=== PATIENT | male | born 1995 | race Hispanic/Latino ===

== ENCOUNTER 2019-12-20 13:21 | Inpatient (IN) ==
[2019-12-20] MEDS ORDERED: ROBAXIN PO PRN (16:20)
[2019-12-20] MEDS ORDERED: DULCOLAX PR PRN (16:20)
[2019-12-20] MEDS ORDERED: TUBERSOL ID ONE (16:20)
[2019-12-20] MEDS ORDERED: MAALOX PLUS LIQUID PO PRN (16:20)
[2019-12-20] MEDS ORDERED: D5W 1,000 ML IV PRN (16:20)
[2019-12-20] MEDS ORDERED: ZOFRAN ODT PO PRN (16:20)
[2019-12-20] MEDS ORDERED: SENOKOT PO PRN (16:20)
[2019-12-20] MEDS ORDERED: ZOFRAN IV PRN (16:20)
[2019-12-20] MEDS ORDERED: BENTYL PO PRN (16:20)
[2019-12-20] MEDS ORDERED: DESYREL PO PRN (16:20)
[2019-12-20] MEDS ORDERED: LIBRIUM PO PRN (16:20)
[2019-12-20] MEDS ORDERED: IMODIUM PO PRN (16:20)
[2019-12-20] MEDS ORDERED: ATARAX PO PRN ×2 (16:20→21:01)
[2019-12-20] MEDS ORDERED: PHENOBARBITAL IV PRN (16:20)
[2019-12-20] MEDS ORDERED: NICODERM PATCH TD PRN (16:20)
[2019-12-20 17:26] LABS: HEMATOCRIT 47.1 % (42.0-52.0); MCHC 36.1 g/dL (33-37); MCV 85.9 FL (81-99); MPV 9.5 FL (7.4-10.4); RBC 5.48 XMIL (4.7-6.1); RDW 12.3 % (11.5-14.5); WBC 4.75 X1000 (4.8-10.8)
[2019-12-20] MEDS: LIBRIUM PO SCH ×2 (17:36→23:12)
[2019-12-20 17:39] LABS: AMYLASE 63 U/L (20-200); LIPASE 15 U/L (13-60)
[2019-12-20 17:42] LABS: AGAP 11; ALBUMIN 4.5 g/dL (3.5-5.0); ALKALINE PHOSPHATASE 55 U/L (32-122); BUN 13 mg/dL (8-22); CALCIUM 9.6 mg/dL (8.8-10.2); CHLORIDE 98 mmol/L (98-107); COSMO 276; CREATININE 0.9 mg/dL (0.7-1.2); ESTIMATED GFR > 60; GLUCOSE 100 mg/dL (70-104); GOT 29 U/L (10-34); GPT 33 U/L (10-44); SODIUM 138 mmol/L (136-145); TCO2 29 mmol/L (25-35); TOTAL PROTEIN 7.4 g/dL (6.3-8.3)
[2019-12-20 17:43] LABS: INR 0.94
[2019-12-20 17:47] LABS: URINE SOURCE CLEAN CATCH
[2019-12-20 17:49] LABS: BILIRUBIN URINE NEGATIVE (NEGATIVE); BLOOD URINE NEGATIVE (NEGATIVE); COLOR YELLOW; GLUCOSE URINE NEGATIVE (NEGATIVE); KETONE URINE NEGATIVE (NEGATIVE); LEUKOCYTES URINE NEGATIVE (NEGATIVE); NITRITE URINE NEGATIVE (NEGATIVE); PROTEIN URINE NEGATIVE (NEGATIVE); SP GRAVITY URINE 1.016; TURBIDITY URINE HAZY (CLEAR); UROBILINOGEN URINE NORMAL (NORMAL)
[2019-12-20 17:50] LABS: UR EPITHELIAL CELLS <10 /HPF (<10); URINE BACTERIA NEGATIVE /HPF; URINE RBC <10 /HPF (<10); URINE WBC <10 /HPF (<10)
[2019-12-20 17:58] LABS: UR AMPHETAMINES QUAL NONE DETECTED (NONE DETECT); UR BARBITUATES QUAL NONE DETECTED (NONE DETECT); UR BENZODIAZEPIN QUAL PRESUMPTIVE POSITIVE (NONE DETECT); UR CANNABINOIDS QUAL PRESUMPTIVE POSITIVE (NONE DETECT); UR COCAINE QUAL NONE DETECTED (NONE DETECT); UR METHADONE QUAL NONE DETECTED (NONE DETECT); UR METHAMPHETAMINE QUAL NONE DETECTED (NONE DETECT); UR OPIATES QUAL NONE DETECTED (NONE DETECT); UR OXYCODONE QUAL NONE DETECTED (NONE DETECT); UR PCP QUAL NONE DETECTED (NONE DETECT); UR PROPOXYPHENE QUAL NONE DETECTED (NONE DETECT); UR TCA QUAL NONE DETECTED (NONE DETECT)
[2019-12-20] MEDS: MOTRIN PO PRN (21:17)
[2019-12-20] MEDS: SINEMET 25/100 PO PRN (21:18)
[2019-12-21] MEDS: LIBRIUM PO SCH ×4 (03:54→18:05)
[2019-12-21] MEDS: MOTRIN PO PRN (03:54)
[2019-12-21] MEDS: PROTONIX [NONFORMULARY] PO SCH ×2 (03:54→06:03)
[2019-12-21] MEDS: TYLENOL PO PRN ×2 (08:13→15:38)
[2019-12-21] MEDS: VITAMIN B-1 PO SCH (08:14)
[2019-12-21] MEDS: THERA M PLUS PO SCH (08:14)
[2019-12-21] MEDS: FOLIC ACID PO SCH (08:14)
[2019-12-21] MEDS: ATARAX PO PRN ×2 (08:23→15:38)
[2019-12-21] MEDS ORDERED: SUBOXONE 2 MG/0.5 MG FILM SL ONE (09:22)
[2019-12-21] MEDS ORDERED: SUBOXONE 2 MG/0.5 MG FILM SL PRN (10:02)
--- NOTE | 2019-12-21 11:17 | PROGRESS NOTE ---
DATE: 12/21/2019 SUBJECTIVE: Patient notes he feels terrible. He is sweating. He is anxious. He is hurting. PHYSICAL EXAMINATION: Vital Signs: Reviewed. He is afebrile. Temperature 97.6 degrees, pulse 98, respiratory 20, blood pressure 118/61. General: Patient is awake, pleasant. He is in mild distress. HEENT: Normocephalic. Neck: Supple. Cardiovascular: Regular rate. Chest: Clear. Abdomen: Soft, nondistended. Extremities: Moves all extremities. Neurologic: No changes. ASSESSMENT: 1. Nausea and vomiting. 2. Abdominal pain. 3. Myalgias. 4. Paresthesias. 5. Paroxysmal sweating. 6. Opiate abuse, withdrawal and stabilization. PLAN: The patient currently is on Librium taper. Given his symptoms, we are going to do p.r.n. Suboxone today and will continue to wean as tolerated. cc: Jose Alejandro Campbell MD
[2019-12-21] MEDS: SINEMET 25/100 PO PRN (18:05)
[2019-12-22] MEDS: LIBRIUM PO SCH ×4 (00:35→17:27)
[2019-12-22] MEDS: PROTONIX [NONFORMULARY] PO SCH (06:25)
[2019-12-22] MEDS: FOLIC ACID PO SCH (09:08)
[2019-12-22] MEDS: VITAMIN B-1 PO SCH (09:08)
[2019-12-22] MEDS: THERA M PLUS PO SCH (09:08)
[2019-12-22] MEDS: SUBOXONE 2 MG/0.5 MG FILM SL PRN (09:24)
[2019-12-22] MEDS: TYLENOL PO PRN (14:02)
--- NOTE | 2019-12-22 19:16 | PROGRESS NOTE ---
DATE: 12/22/2019 SUBJECTIVE: Patient notes that he is feeling a little bit better, Suboxone did help. States he is still having some withdrawal symptoms. PHYSICAL EXAMINATION: Vital signs reviewed. He is awake, alert. He is in no current respiratory distress.HEENT: Normocephalic. Neck: Supple. CV: Regular rate. Chest: Clear. Abdomen: Soft. Extremities: Moves all extremities. Neuro: He has no focal changes. He is still fidgety, still anxious. ASSESSMENT: 1. Nausea, vomiting. 2. Abdominal pain. 3. Myalgias. 4. Paresthesias. 5. Paroxysmal sweating. 6. Opiate abuse withdrawal and stabilization. PLAN: We are going to continue patient in the hospital, continue to follow, further orders as needed. Continue symptomatic care. cc: Jose Alejandro Campbell MD
--- NOTE | 2019-12-22 23:14 | HISTORY AND PHYSICAL ---
CHIEF COMPLAINT: Nausea and vomiting. HISTORY OF PRESENT ILLNESS: The patient is a 24-year-old male who presented to [facility] secondary to nausea, vomiting and abdominal pain. He notes he has been using and abusing opiates. He has been trying to stop, but the withdrawal symptoms at times become too severe. SOCIAL HISTORY: The patient is single. Currently unemployed. Lives at home in [place], [place]. PAST MEDICAL HISTORY: He has no active medical problems other than substance abuse for which he takes Suboxone. PRESCRIPTIONS: Suboxone. ALLERGIES: No known drug allergies. REVIEW OF SYSTEMS: CINA score is 15 secondary to nausea, vomiting, abdominal pain, paroxysmal sweating, cold chills, frequent myalgias. He is restless, has insomnia, frequent mood swings, runny nose, watery eyes, frequent yawning, Denies any fevers or chills. Denies cough or congestion. Denies dysuria, frequency or urgency, polyuria. Denies skin rashes, weight loss or weight gain. SUBSTANCE ABUSE.: He was in treatment in 2008 for opiates 3 to 4 days, and in 2019 for 3 to 4 days, unfortunately did not stay sober after leaving. He notes that substance abuse has caused legal issues. He states he wants to get into the after getting off opiates. He started marijuana at 14, currently smokes daily. He started Xanax only experimentally. He has tried cocaine once. He started opiates at 22, currently takes 150 mg daily. He started smoking in his teens, currently smokes a pack a day. FAMILY HISTORY: Noncontributory. PHYSICAL EXAMINATION: VITAL SIGNS: Reviewed and stable. GENERAL: The patient is awake, alert and oriented. Currently in no respiratory distress. HEENT: Normocephalic. NECK: Supple. CARDIOVASCULAR: Regular rate. No murmurs. CHEST: Clear and nonlabored. ABDOMEN: Soft, nondistended, nontender. EXTREMITIES: Moves all extremities. NEUROLOGIC: The patient is awake and alert. He is fidgety, anxious. He does answer questions. ASSESSMENT: 1. Nausea and vomiting. 2. Abdominal pain. 3. Tremors. 4. Myalgias. 5. Paresthesias. 6. Paroxysmal sweating. 7. Opiate abuse, withdrawal and stabilization. PLAN: We are going to admit the patient to the hospital, place him on Suboxone taper as well as Librium. Continue to follow. Continue counseling. Further orders as needed. cc: Jose Alejandro Campbell MD
[2019-12-23] MEDS: SEROQUEL PO PRN ×2 (00:12→23:34)
[2019-12-23] MEDS: SUBOXONE 2 MG/0.5 MG FILM SL PRN (00:13)
[2019-12-23] MEDS: PROTONIX [NONFORMULARY] PO SCH (06:09)
[2019-12-23] MEDS: THERA M PLUS PO SCH (09:21)
[2019-12-23] MEDS: LIBRIUM PO SCH ×3 (09:21→21:01)
[2019-12-23] MEDS: FOLIC ACID PO SCH (09:21)
[2019-12-23] MEDS: VITAMIN B-1 PO SCH (09:21)
[2019-12-23] MEDS ORDERED: SUBUTEX SL PRN (10:21)
[2019-12-23] MEDS ORDERED: LIBRIUM PO PRN (10:22)
--- NOTE | 2019-12-23 10:50 | PROGRESS NOTE ---
DATE: 12/23/2019 SUBJECTIVE: The patient notes he is starting to feel a little bit better. States he feels like he has turned the corner. He did require some Suboxone yesterday. PHYSICAL EXAMINATION: Vital Signs: Reviewed. General: He is awake and alert. He is in no distress. He is lying in the bed. He is pleasant to talk with. Neurologic: No focal neurological changes. Extremities: Moves all extremities. ASSESSMENT: 1. Nausea and vomiting. 2. Abdominal pain. 3. Myalgias. 4. Paresthesias. 5. Paroxysmal sweating. 6. Opiate abuse withdrawal and stabilization. PLAN: We are going to continue the patient in the hospital, continue to wean Librium and Suboxone simultaneously. Further orders as needed. Continue counseling. cc: Jose Alejandro Campbell MD
[2019-12-24] MEDS: TYLENOL PO PRN (00:50)
[2019-12-24] MEDS: LIBRIUM PO SCH ×3 (02:17→21:59)
[2019-12-24] MEDS: PROTONIX [NONFORMULARY] PO SCH ×2 (06:21→06:22)
[2019-12-24] MEDS: VITAMIN B-1 PO SCH (10:20)
[2019-12-24] MEDS: FOLIC ACID PO SCH (10:20)
[2019-12-24] MEDS: THERA M PLUS PO SCH (10:20)
[2019-12-24] MEDS ORDERED: SUBUTEX SL PRN (13:01)
[2019-12-24] MEDS: SEROQUEL PO PRN (21:59)
[2019-12-25] MEDS: PROTONIX [NONFORMULARY] PO SCH ×2 (06:54→10:08)
[2019-12-25 09:28] VITALS: BP 155/54
[2019-12-25] MEDS: LIBRIUM PO SCH (10:07)
[2019-12-25] MEDS: VITAMIN B-1 PO SCH (10:07)
[2019-12-25] MEDS: THERA M PLUS PO SCH (10:08)
[2019-12-25] MEDS: FOLIC ACID PO SCH (10:08)
--- NOTE | 2019-12-25 18:36 | PROGRESS NOTE ---
DATE: 12/24/2019 SUBJECTIVE: Patient notes overall, he is feeling tremendously better today. Denies any fevers or chills. PHYSICAL EXAMINATION: Vital Signs: Reviewed. He is awake and alert. He is in no respiratory distress. He is afebrile. Blood pressure is 119/57, pulse 66. General: Patient is awake pleasant no distress. HEENT: Normocephalic. Neck: Supple. Cardiovascular: Regular rate. Chest: Clear. Abdomen: Soft. Extremities: Moves all extremities. ASSESSMENT: 1. Nausea and vomiting. 2. Abdominal pain. 3. Myalgias. 4. Paresthesias. 5. Paroxysmal sweating. 6. Opiate abuse withdrawal and stabilization. PLAN: Overall, the patient has had a tremendous improvement. We will continue to wean Librium as well as Suboxone to prevent withdrawal. Hopefully can discharge to rehab tomorrow if a bed is available. cc: Jose Alejandro Campbell MD
--- NOTE | 2019-12-25 19:54 | DISCHARGE SUMMARY ---
ADMISSION DATE: 12/20/2019 DISCHARGE DATE: 12/25/2019 DISCHARGE DIAGNOSES: 1. Nausea and vomiting. 2. Abdominal pain. 3. Myalgias. 4. Paresthesias. 5. Paroxysmal sweating. 6. Opiate abuse, withdrawal and stabilization. CONSULTATIONS: None. PROCEDURES: None. BRIEF HOSPITAL COURSE: The patient is a 24-year-old male who presented to the hospital secondary to significant withdrawal symptoms. He was treated in the usual fashion, placed on Librium as well as a tapering dose of Suboxone due to the severity of his symptoms. Thankfully, he tolerated it very well. On discharge he notes that all of his symptoms have resolved. He is feeling much better. He has been weaned down. No prescriptions were needed on discharge. Greater than 30 minutes was spent in total care. He will follow up immediately with long-term inpatient care upon discharge. cc: Jose Alejandro Campbell MD
== END 2019-12-25 10:47 | disposition home or self-care (01) | DRG 897 ==
LOC: P.DIRADM 13:21 → P.MEDSURG 13:51
PROVIDERS: ADMIT Family Medicine; ATTEND Family Medicine